=== PATIENT | male | born 1995 | race Caucasian/White ===

== ENCOUNTER 2016-11-03 02:00 | Emergency (ER) | payer SELFPAY ==
[~2016-11-03] VITALS: Ht 185.4 cm; Wt 65.0 kg
[~2016-11-03 02:00] MED LIST: BENZ100 PO; DICY1TAB26 PO; LOMO PO; ZOFR4TAB3 SL
[2016-11-03 02:01] VITALS: BP 119/69; PULSE 106; RESP 18; TEMP 99.4; O2SAT 99
[2016-11-03] MEDS ORDERED: ACETAMINOPHEN 500 MG CPLT PO ONE (03:30)
[2016-11-03] MEDS ORDERED: KETOROLAC TROMETHAMINE 30 MG/ML (IVP) VIAL IV PUSH ONE (03:30)
[2016-11-03] MEDS ORDERED: diphenhydrAMINE HCL 50 MG/ML VIAL IV PUSH ONE (03:30)
[2016-11-03] MEDS ORDERED: SODIUM CHLOR 0.9% 1000 ML INJ 1,000 ML IV ONE (03:30)
--- NOTE | 2016-11-03 03:33 | PD ---
HPI Chief Complaint: Fever Time Seen by Provider: 03:29 Travel History International Travel<30 days: No Contact w/Intl Traveler<30days: No Traveled to known affect area: No History of Present Illness HPI 21-year-old male presents to emergency department with complaints of fever. He states it is been sick now for the last to 3 days. He said headache , decreased hearing, nasal congestion, sore throat, slight cough, myalgias, arthralgias and general malaise. Positive mild nausea and upset stomach. He denies any vomiting. No diarrhea. No dysuria or frequency. No rashes or lesions. He took one Advil earlier this afternoon. [facility] Past Medical History Narrative Medical Right rotator cuff injury Hx Anticoagulant Therapy: No Cardiovascular Problems: No Chemotherapy: No Cerebrovascular Accident: No Diabetes: No Diminished Hearing: Yes (Right side diminished due to infection) Musculoskeletal: Yes (right shoulder surgery, ) Respiratory: Yes (Childhood Asthma) Tetanus Vaccination: < 5 Years Influenza Vaccination: No Past Surgical History Narrative Surgical Appendectomy, right shoulder surgery, septoplasty Appendectomy: Yes Oral Surgery: Yes (nose surgery ) Social History Alcohol Use: No Tobacco Use: Yes Substance Use: No Allergies-Medications (Allergen,Severity, Reaction): Coded Allergies: No Known Allergies (Unverified , 11/03/16) Reported Meds & Prescriptions Reported Meds & Active Scripts Active No Active Prescriptions or Reported Medications Review of Systems Except as stated in HPI: all other systems reviewed are Neg Physical Exam Narrative GENERAL: Well-developed, well-nourished in no apparent distress. Nontoxic appearing. HEAD: Normocephalic, atraumatic. EYES: Pupils equal round and reactive. Extraocular motions intact. No scleral icterus. No injection or drainage. ENT: Nose clear. Throat mild erythema, tonsillar hypertrophy or exudate. Uvula midline. Airway patent. Positive tender tonsillar cervical adenopathy NECK: Trachea midline. Supple, nontender, moves head freely. No central bony tenderness or spasm. CARDIOVASCULAR: Regular rate and rhythm without murmurs, gallops, or rubs. RESPIRATORY: Clear to auscultation. Breath sounds equal bilaterally. No wheezes , rales, or rhonchi. GASTROINTESTINAL: Abdomen soft, non-tender, nondistended. No hepato-splenomegaly , or palpable masses. No guarding. EXTREMITIES: No clubbing, cyanosis, or edema. No joint tenderness. BACK: Nontender without deformity. No flank tenderness. NEUROLOGICAL: Awake, alert and oriented x 3 .Cranial nerves grossly intact. Motor and sensory grossly within normal limits. Normal speech. Data Data Last Documented VS Vital Signs Date Time Temp Pulse Resp B/P Pulse Ox O2 Delivery O2 Flow Rate FiO2 11/03/16 04:20 102.3 11/03/16 02:01 106 18 119/69 99 Room Air Orders Complete Blood Count With Diff (11/03/16 03:21) Comprehensive Metabolic Panel (11/03/16 03:21) Group A Rapid Strep Screen (11/03/16 03:21) Influenzae A/B Antigen (11/03/16 03:21) Sodium Chlor 0.9% 1000 Ml Inj (Ns 1000 M (11/03/16 03:30) Acetaminophen (Tylenol) (11/03/16 03:30) Ketorolac Inj (Toradol Inj) (11/03/16 03:30) Diphenhydramine Inj (Benadryl Inj) (11/03/16 03:30) Strep Culture (Group A) (11/03/16 03:45) Labs Laboratory Tests Test 11/03/16 03:45 White Blood Count 9.3 TH/MM3 Red Blood Count 4.81 MIL/MM3 Hemoglobin 15.0 GM/DL Hematocrit 43.2 % Mean Corpuscular Volume 89.8 FL Mean Corpuscular Hemoglobin 31.1 PG Mean Corpuscular Hemoglobin 34.6 % Concent Red Cell Distribution Width 13.4 % Platelet Count 185 TH/MM3 Mean Platelet Volume 8.7 FL Neutrophils (%) (Auto) 74.8 % Lymphocytes (%) (Auto) 15.0 % Monocytes (%) (Auto) 9.7 % Eosinophils (%) (Auto) 0.2 % Basophils (%) (Auto) 0.3 % Neutrophils # (Auto) 7.0 TH/MM3 Lymphocytes # (Auto) 1.4 TH/MM3 Monocytes # (Auto) 0.9 TH/MM3 Eosinophils # (Auto) 0.0 TH/MM3 Basophils # (Auto) 0.0 TH/MM3 CBC Comment DIFF FINAL Differential Comment Sodium Level 139 MEQ/L Potassium Level 3.5 MEQ/L Chloride Level 105 MEQ/L Carbon Dioxide Level 26.1 MEQ/L Anion Gap 8 MEQ/L Blood Urea Nitrogen 7 MG/DL Creatinine 0.99 MG/DL Estimat Glomerular Filtration 95 ML/MIN Rate Random Glucose 99 MG/DL Calcium Level 8.8 MG/DL Total Bilirubin 0.7 MG/DL Aspartate Amino Transf 20 U/L (AST/SGOT) Alanine Aminotransferase 21 U/L (ALT/SGPT) Alkaline Phosphatase 77 U/L Total Protein 7.2 GM/DL Albumin 3.9 GM/DL MDM Medical Decision Making Medical Screen Exam Complete: Yes Emergency Medical Condition: Yes Medical Record Reviewed: Yes Interpretation(s) Rapid strep: Negative Influenza: Positive Laboratory Tests Test 11/03/16 03:45 White Blood Count 9.3 TH/MM3 Red Blood Count 4.81 MIL/MM3 Hemoglobin 15.0 GM/DL Hematocrit 43.2 % Mean Corpuscular Volume 89.8 FL Mean Corpuscular Hemoglobin 31.1 PG Mean Corpuscular Hemoglobin 34.6 % Concent Red Cell Distribution Width 13.4 % Platelet Count 185 TH/MM3 Mean Platelet Volume 8.7 FL Neutrophils (%) (Auto) 74.8 % Lymphocytes (%) (Auto) 15.0 % Monocytes (%) (Auto) 9.7 % Eosinophils (%) (Auto) 0.2 % Basophils (%) (Auto) 0.3 % Neutrophils # (Auto) 7.0 TH/MM3 Lymphocytes # (Auto) 1.4 TH/MM3 Monocytes # (Auto) 0.9 TH/MM3 Eosinophils # (Auto) 0.0 TH/MM3 Basophils # (Auto) 0.0 TH/MM3 CBC Comment DIFF FINAL Differential Comment Sodium Level 139 MEQ/L Potassium Level 3.5 MEQ/L Chloride Level 105 MEQ/L Carbon Dioxide Level 26.1 MEQ/L Anion Gap 8 MEQ/L Blood Urea Nitrogen 7 MG/DL Creatinine 0.99 MG/DL Estimat Glomerular Filtration 95 ML/MIN Rate Random Glucose 99 MG/DL Calcium Level 8.8 MG/DL Total Bilirubin 0.7 MG/DL Aspartate Amino Transf 20 U/L (AST/SGOT) Alanine Aminotransferase 21 U/L (ALT/SGPT) Alkaline Phosphatase 77 U/L Total Protein 7.2 GM/DL Albumin 3.9 GM/DL Differential Diagnosis MDM: High Differential diagnoses: Pneumonia, bronchitis, URI, asthma, RAD, influenza-like illness, viral syndrome, strep throat Narrative Course IV normal saline 1 L bolus. Toradol 30 mg IV, Benadryl 50 mg IV. Tylenol 1 g by mouth Patient's strep is negative his influenza was positive. The patient is feeling subjectively improved. This is influenza Diagnosis Primary Impression: Influenza Patient Instructions: General Instructions Departure Forms: School Release, Please excuse from school until (free text option): No school 5 days. Tests/Procedures Additional Instructions: Rest. Increase fluids. Tylenol and Advil. Robitussin-DM. Followup with your Dr. in one week. Return to the ER for any problems. Med/Other Pt SpecificInfo: No Meds Exist/No RX given Scripts No Active Prescriptions or Reported Meds Disposition: 01 DISCHARGE HOME Condition: Stable Eddie Ledbetter Nov 03, 2016 03:33
[2016-11-03 03:56] LABS: BASOPHIL % 0.3 % (0.0-2.0); EOSINOPHIL % 0.2 % (0.0-4.0); HEMATOCRIT 43.2 % (39.0-51.0); HEMO FLAGS DIFF FINAL; LYMPHOCYTE # 1.4 TH/MM3 (1.0-4.8); MEAN CELL VOLUME 89.8 FL (80.0-100.0); MEAN CORPUSCULAR HEMOGLOBIN 31.1 PG (27.0-34.0); MEAN CORPUSCULAR HGB CONC 34.6 % (32.0-36.0); MONO % 9.7 % (0.0-8.0); NEUT % 74.8 % (16.0-70.0); PLATELET COUNT 185 TH/MM3 (150-450); RED BLOOD COUNT 4.81 MIL/MM3 (4.50-5.90); RED CELL DISTRIBUTION WIDTH 13.4 % (11.6-17.2); WHITE BLOOD COUNT 9.3 TH/MM3 (4.0-11.0)
[2016-11-03 04:20] VITALS: TEMP 102.3
[2016-11-03 04:23] LABS: ALT (GPT) 21 U/L (12-78); ANION GAP 8 MEQ/L (5-15); AST (GOT) 20 U/L (15-37); BICARBONATE 26.1 MEQ/L (21.0-32.0); BLOOD UREA NITROGEN 7 MG/DL (7-18); CHLORIDE 105 MEQ/L (98-107); GLOMERULAR FILTRATION RATE 95 ML/MIN (>89); POTASSIUM 3.5 MEQ/L (3.5-5.1); SODIUM (NA) 139 MEQ/L (136-145)
[2016-11-03 04:25] LABS: ALKALINE PHOSPHATASE 77 U/L (45-117); TOTAL BILIRUBIN ADULT 0.7 MG/DL (0.2-1.0)
[2016-11-03 04:50] VITALS: RESP 16
== END 2016-11-03 06:45 | disposition home or self-care (01) ==
LOC: NEPD 02:00
DX: J10.1 Influenza due to other identified influenza virus with other respiratory manifestations (principal); R11.0 Nausea; Z72.0 Tobacco use
CPT/HCPCS: 80053; 85025; 87081; 87804; 87880; 96361; 96374; 96375; 99284; J1200; J1885; J7030

== ENCOUNTER 2016-12-03 21:15 | Emergency (ER) | payer SELFPAY ==
[2016-12-03 21:20] VITALS: BP 128/72; PULSE 87; RESP 16; TEMP 98.7; O2SAT 98
== END 2016-12-03 22:00 | disposition left against medical advice (07) ==
LOC: NED 21:15
DX: R68.89 Other general symptoms and signs (principal)
CPT/HCPCS: 99281